=== PATIENT | male | born 1980 | race Caucasian/White ===

== ENCOUNTER 2018-11-25 04:53 | Emergency (ER) | payer OTHER, MEDICAID ==
[2018-11-25] MEDS: ONDANSETRON (ODT) 4 MG TAB ODT (05:42)
[2018-11-25] MEDS: IBUPROFEN 800 MG TAB PO (05:42)
[2018-11-25] MEDS: DEXAMETHASONE 10 MG/ML 1 ML INJ IM (05:43)
== END 2018-11-25 05:56 | disposition home or self-care (01) ==
LOC: FTE 05:56
DX: J03.90 Acute tonsillitis, unspecified (principal); J32.9 Chronic sinusitis, unspecified
CPT/HCPCS: 96372; 99284-25

== ENCOUNTER 2019-01-21 11:35 | Emergency (ER) | payer OTHER | END 2019-01-21 13:27 | disposition home or self-care (01) | LOC: FTE 11:35 | DX: R19.7 Diarrhea, unspecified (principal) | CPT/HCPCS: 99283; Z7502 ==